=== PATIENT | male | born 1970 | race Caucasian/White ===

== ENCOUNTER → 2016-04-23 | Outpatient (CLI) | payer OTHER ==
[~2016-04-23] MED LIST: AMLODIPINE BESYL5 MG PO; ATARAX25 MG PO; CLEOCIN150 MG PO; FLEXERIL10 MG PO; NAPROSYN500 MG PO; PREDNICOT20 MG PO; PRILOSEC20 M1 PO; TESSALON PERLE200 MG PO; TORADOL10 MG PO; ZITHROMAX Z PA250 MG PO
[2016-04-23 09:23] LABS: BASO # 0.2 10*3/uL (0.0-0.1); BASO % 1.8 % (0.0-1.0); EOS # 0.7 10*3/uL (0.0-0.4); HEMATOCRIT 39.5 % (42.0-52.0); HEMOGLOBIN 13.5 g/dl (14.0-18.0); LYMPH # 3.3 10*3/uL (1.3-4.4); LYMPH % 34.1 % (27.0-41.0); MEAN CORPUSCULAR HGB 30.8 pg (27.0-31.0); MEAN CORPUSCULAR HGB CONC 34.2 g/dl (33.0-37.0); MEAN PLATELET VOLUME 8.8 fl (9.6-12.3); MONO # 0.8 10*3/uL (0.1-1.0); MONO % 8.4 % (3.0-9.0); NEUT # 4.7 10*3/uL (2.3-7.9); NEUT % 48.4 % (47.0-73.0); PLATELET COUNT AUTOMATED 248 10*3/uL (130-400); RED BLOOD COUNT 4.39 10*6/uL (4.50-5.90); RED CELL DISTRI WIDTH 11.7 % (0-14.5); WHITE BLOOD COUNT 9.7 10*3/uL (4.8-10.8)
[2016-04-23 09:45] LABS: ALBUMIN 3.4 gm/dl (3.1-4.5); BILIRUBIN, TOTAL 0.2 mg/dl (0.2-1.0); POTASSIUM 3.9 mmol/L (3.5-5.1); TOTAL PROTEIN 7.2 gm/dL (6.4-8.2)
== END | disposition home or self-care (01) ==
LOC: LAB 09:00
PROVIDERS: Student in an Organized Health Care Education/Training Program
DX: N17.9 Acute kidney failure, unspecified (principal)

== ENCOUNTER 2017-07-13 13:48 | Inpatient (IN) | payer OTHER ==
[~2017-07-13] VITALS: Ht 175.2 cm; Wt 83.7 kg
[2017-07-13 15:08] VITALS: BP 144/90
[2017-07-13] MEDS ORDERED: PRILOSEC20 M1 PO (15:08)
[2017-07-13 15:14] LABS: BASO # 0.1 10*3/uL (0.0-0.1); BASO % 1.3 % (0.0-1.0); EOS # 0.1 10*3/uL (0.0-0.4); EOS % 0.9 % (1.0-4.0); HEMATOCRIT 46.8 % (42.0-52.0); HEMOGLOBIN 15.8 g/dl (14.0-18.0); LYMPH # 2.3 10*3/uL (1.3-4.4); LYMPH % 26.6 % (27.0-41.0); MEAN CELL VOLUME 89.5 fl (80.0-94.0); MEAN CORPUSCULAR HGB 30.2 pg (27.0-31.0); MEAN CORPUSCULAR HGB CONC 33.8 g/dl (33.0-37.0); MEAN PLATELET VOLUME 8.9 fl (9.6-12.3); MONO # 0.7 10*3/uL (0.1-1.0); MONO % 8.3 % (3.0-9.0); NEUT # 5.3 10*3/uL (2.3-7.9); NEUT % 62.7 % (47.0-73.0); PLATELET COUNT AUTOMATED 246 10*3/uL (130-400); RED BLOOD COUNT 5.23 10*6/uL (4.50-5.90); RED CELL DISTRI WIDTH 13.2 % (0-14.5); WHITE BLOOD COUNT 8.5 10*3/uL (4.8-10.8)
[2017-07-13 15:20] LABS: INTERNATIONAL NORM RATIO 0.9 (2.0-3.5)
[2017-07-13 15:27] LABS: ALBUMIN 3.7 gm/dl (3.1-4.5); ALKALINE PHOSPHATASE 38 U/L (45-117); BUN 15 mg/dl (7-24); CHLORIDE 106 mmol/L (98-107); CREATININE 1.08 mg/dL (0.70-1.30); LIPASE 88 U/L (73-393); POTASSIUM 3.8 mmol/L (3.5-5.1); SGOT/AST 14 IU/L (3-35); SGPT/ALT 15 U/L (12-78); SODIUM 139 mmol/L (136-145); TOTAL PROTEIN 6.9 gm/dL (6.4-8.2)
[2017-07-13 15:32] LABS: ETHYL ALCOHOL < 3.0 mg/dl (<3)
[2017-07-13 16:00] VITALS: BP 144/90
[2017-07-13 16:32] LABS: BILIRUBIN NEGATIVE (NEGATIVE); BLOOD TRACE-LYSED (NEGATIVE); CLARITY SL CLOUDY (CLEAR); COLOR YELLOW (YELLOW); GLUCOSE NEGATIVE (NEGATIVE); KETONE NEGATIVE (NEGATIVE); LEUKO ESTERASE NEGATIVE (NEGATIVE); NITRITE NEGATIVE (NEGATIVE); PH 5.5 (5.0-9.0); SPECIFIC GRAVITY 1.025 (1.005-1.030); UROBILINOGEN 0.2 E.U./dl (0.2-1.0)
[2017-07-13 16:40] LABS: URINE AMPHETAMINES < 1000 (1000ng/ml); URINE BARBITURATES < 200 (200ng/ml); URINE BENZODIAZEPINES > 200 (200ng/ml); URINE CANNABINOIDS (THC) < 50 (50ng/ml); URINE COCAINE > 300 (300ng/ml); URINE METHADONE < 300 (300ng/ml); URINE OPIATES > 300 (300ng/ml)
[2017-07-13 16:41] LABS: URINE PHENCYCLIDINE < 25 (25ng/ml)
[2017-07-13 16:44] LABS: BACTERIA 1+; RBC 0-2 rbc/hpf (0-2)
[2017-07-13 16:45] LABS: MUCOUS TRACE
[2017-07-13 20:00] VITALS: BP 133/77
[2017-07-14 00:20] VITALS: BP 118/59
[2017-07-14 08:00] VITALS: BP 106/53
[2017-07-14 12:00] VITALS: BP 126/66
[2017-07-14 16:00] VITALS: BP 148/81
== END 2017-07-14 18:52 | disposition left against medical advice (07) | DRG 894 ==
LOC: 4E 13:48
PROVIDERS: Internal Medicine
DX: F11.23 Opioid dependence with withdrawal (principal); D72.810 Lymphocytopenia; F13.10 Sedative, hypnotic or anxiolytic abuse, uncomplicated; F41.9 Anxiety disorder, unspecified; I10 Essential (primary) hypertension; F14.10 Cocaine abuse, uncomplicated; K21.9 Gastro-esophageal reflux disease without esophagitis; F17.200 Nicotine dependence, unspecified, uncomplicated; R73.9 Hyperglycemia, unspecified; R76.8 Other specified abnormal immunological findings in serum; Z53.21 Procedure and treatment not carried out due to patient leaving prior to being seen by health care provider; Z79.899 Other long term (current) drug therapy; Z71.6 Tobacco abuse counseling

== ENCOUNTER 2017-09-12 16:26 | Inpatient (IN) | payer OTHER ==
[~2017-09-12] VITALS: Ht 175.2 cm; Wt 78.2 kg
[2017-09-12 16:30] VITALS: BP 141/99
[2017-09-12 16:56] LABS: BASO # 0.1 10*3/uL (0.0-0.1); BASO % 0.4 % (0.0-1.0); HEMATOCRIT 50.7 % (42.0-52.0); HEMOGLOBIN 16.9 g/dl (14.0-18.0); LYMPH # 1.6 10*3/uL (1.3-4.4); LYMPH % 13.4 % (27.0-41.0); MEAN CELL VOLUME 90.9 fl (80.0-94.0); MEAN CORPUSCULAR HGB 30.3 pg (27.0-31.0); MEAN CORPUSCULAR HGB CONC 33.3 g/dl (33.0-37.0); MEAN PLATELET VOLUME 8.9 fl (9.6-12.3); MONO # 0.5 10*3/uL (0.1-1.0); MONO % 3.9 % (3.0-9.0); NEUT # 9.7 10*3/uL (2.3-7.9); PLATELET COUNT AUTOMATED 244 10*3/uL (130-400); RED BLOOD COUNT 5.58 10*6/uL (4.50-5.90); RED CELL DISTRI WIDTH 12.1 % (0-14.5); WHITE BLOOD COUNT 11.8 10*3/uL (4.8-10.8)
[2017-09-12 17:06] VITALS: BP 134/87
[2017-09-12 17:11] LABS: ALBUMIN 4.1 gm/dl (3.1-4.5); ALKALINE PHOSPHATASE 40 U/L (45-117); BUN 10 mg/dl (7-24); CHLORIDE 105 mmol/L (98-107); CREATININE 1.28 mg/dL (0.70-1.30); POTASSIUM 4.6 mmol/L (3.5-5.1); SGOT/AST 12 IU/L (3-35); SGPT/ALT 19 U/L (12-78); SODIUM 140 mmol/L (136-145); TOTAL PROTEIN 7.7 gm/dL (6.4-8.2)
[2017-09-12 17:12] LABS: ETHYL ALCOHOL < 3.0 mg/dl (<3)
[2017-09-12 18:44] LABS: BILIRUBIN NEGATIVE (NEGATIVE); BLOOD NEGATIVE (NEGATIVE); CLARITY CLEAR (CLEAR); COLOR YELLOW (YELLOW); GLUCOSE NEGATIVE (NEGATIVE); KETONE NEGATIVE (NEGATIVE); LEUKO ESTERASE NEGATIVE (NEGATIVE); NITRITE NEGATIVE (NEGATIVE); SPECIFIC GRAVITY 1.015 (1.005-1.030)
[2017-09-12 18:52] LABS: BACTERIA TRACE; EPITHELIAL CELLS 0-2; RBC 0-2 rbc/hpf (0-2); URINE AMPHETAMINES < 1000 (1000ng/ml); URINE BARBITURATES < 200 (200ng/ml); URINE BENZODIAZEPINES > 200 (200ng/ml); URINE CANNABINOIDS (THC) < 50 (50ng/ml); URINE COCAINE > 300 (300ng/ml); URINE METHADONE < 300 (300ng/ml); URINE OPIATES > 300 (300ng/ml); URINE PHENCYCLIDINE < 25 (25ng/ml); WBC 0-2 wbc/hpf (0-5)
[2017-09-12 20:00] VITALS: BP 129/78
[2017-09-13] VITALS: BP 134/84
[2017-09-13 04:00] VITALS: BP 153/79
[2017-09-13 08:00] VITALS: BP 144/89
[2017-09-13 12:00] VITALS: BP 139/77
[2017-09-13 16:00] VITALS: BP 145/86
[2017-09-13 20:00] VITALS: BP 127/97
[2017-09-14] VITALS: BP 127/85
== END 2017-09-14 05:02 | disposition left against medical advice (07) | DRG 894 ==
LOC: ED 16:26 → EDHOLD 16:45 → 4E 16:56
PROVIDERS: Family Medicine
DX: F11.23 Opioid dependence with withdrawal (principal); R65.10 Systemic inflammatory response syndrome (SIRS) of non-infectious origin without acute organ dysfunction; D72.829 Elevated white blood cell count, unspecified; F19.10 Other psychoactive substance abuse, uncomplicated; F41.9 Anxiety disorder, unspecified; R00.0 Tachycardia, unspecified; R06.82 Tachypnea, not elsewhere classified; F10.10 Alcohol abuse, uncomplicated; F14.10 Cocaine abuse, uncomplicated; K21.9 Gastro-esophageal reflux disease without esophagitis; Z53.21 Procedure and treatment not carried out due to patient leaving prior to being seen by health care provider; F13.10 Sedative, hypnotic or anxiolytic abuse, uncomplicated; R76.8 Other specified abnormal immunological findings in serum; I10 Essential (primary) hypertension; R73.9 Hyperglycemia, unspecified; Z71.6 Tobacco abuse counseling; Z72.0 Tobacco use; Z79.899 Other long term (current) drug therapy; Z83.3 Family history of diabetes mellitus

== ENCOUNTER 2018-09-29 22:54 | Emergency (ER) | payer OTHER ==
[~2018-09-29] VITALS: Ht 170.1 cm; Wt 81.6 kg
[2018-09-29 22:57] VITALS: BP 168/94
== END 2018-09-30 00:25 | disposition left against medical advice (07) ==
LOC: ED 22:54
DX: F41.9 Anxiety disorder, unspecified (principal); F17.200 Nicotine dependence, unspecified, uncomplicated; F14.90 Cocaine use, unspecified, uncomplicated; F11.90 Opioid use, unspecified, uncomplicated

== ENCOUNTER 2018-09-30 11:48 | Emergency (ER) | payer OTHER ==
[~2018-09-30] VITALS: Ht 175.2 cm; Wt 81.6 kg
[2018-09-30 11:49] VITALS: BP 182/101
[2018-09-30 13:27] LABS: URINE AMPHETAMINES < 1000 (1000ng/ml); URINE BARBITURATES < 200 (200ng/ml); URINE BENZODIAZEPINES < 200 (200ng/ml); URINE CANNABINOIDS (THC) < 50 (50ng/ml); URINE COCAINE < 300 (300ng/ml); URINE METHADONE < 300 (300ng/ml); URINE OPIATES < 300 (300ng/ml); URINE PHENCYCLIDINE < 25 (25ng/ml)
== END 2018-09-30 13:55 | disposition home or self-care (01) ==
LOC: ED 11:48
PROVIDERS: Emergency Medicine
DX: F41.9 Anxiety disorder, unspecified (principal); F14.90 Cocaine use, unspecified, uncomplicated; F11.90 Opioid use, unspecified, uncomplicated; F17.200 Nicotine dependence, unspecified, uncomplicated; I10 Essential (primary) hypertension; K21.9 Gastro-esophageal reflux disease without esophagitis; G25.81 Restless legs syndrome

== ENCOUNTER 2019-02-15 15:57 | Emergency (ER) | payer SELFPAY ==
[~2019-02-15] VITALS: Ht 175.2 cm; Wt 86.2 kg
[2019-02-15 15:59] VITALS: BP 155/98
[2019-02-15] MEDS ORDERED: AMLODIPINE BESYL5 MG PO (16:11)
[2019-02-15] MEDS ORDERED: BUPRENORPHINE HY8 MG SL (16:11)
[2019-02-15] MEDS ORDERED: OMEPRAZOLE MAGN20 MG PO (16:11)
[2019-02-15] MEDS ORDERED: NAPROSYN500 MG PO (17:47)
== END 2019-02-15 18:12 | disposition home or self-care (01) ==
LOC: ED 15:57
DX: G89.29 Other chronic pain (principal); M25.511 Pain in right shoulder; M25.512 Pain in left shoulder; I10 Essential (primary) hypertension; K21.9 Gastro-esophageal reflux disease without esophagitis; G43.909 Migraine, unspecified, not intractable, without status migrainosus; F17.200 Nicotine dependence, unspecified, uncomplicated; Z79.899 Other long term (current) drug therapy

== ENCOUNTER 2020-11-24 13:10 | Emergency (ER) | payer OTHER ==
[~2020-11-24] VITALS: Wt 90.7 kg
[~2020-11-24 13:10] MED LIST changes: +BUPRENORPHINE HY8 MG SL; +OMEPRAZOLE MAGN20 MG PO
[2020-11-24 13:21] VITALS: BP 151/87
[2020-11-24 13:39] LABS: BASO # 0.1 10*3/uL (0.0-0.1); BASO % 0.7 % (0.0-1.0); EOS # 0.1 10*3/uL (0.0-0.4); EOS % 1.1 % (1.0-4.0); HEMATOCRIT 48.6 % (42.0-52.0); LYMPH # 2.8 10*3/uL (1.3-4.4); LYMPH % 28.2 % (27.0-41.0); MEAN CELL VOLUME 91.4 fl (80.0-94.0); MONO # 1.1 10*3/uL (0.1-1.0); NEUT # 5.8 10*3/uL (2.3-7.9); NEUT % 58.6 % (47.0-73.0); PLATELET COUNT AUTOMATED 271 10*3/uL (130-400); RED BLOOD COUNT 5.32 10*6/uL (4.50-5.90); RED CELL DISTRI WIDTH 12.6 % (0-14.5); WHITE BLOOD COUNT 9.8 10*3/uL (4.8-10.8)
[2020-11-24 13:57] LABS: ALBUMIN 3.6 gm/dl (3.1-4.5); ALKALINE PHOSPHATASE 34 U/L (45-117); BUN 16 mg/dl (7-24); CHLORIDE 108 mmol/L (98-107); CREATININE 1.06 mg/dL (0.70-1.30); POTASSIUM 4.4 mmol/L (3.5-5.1); SGOT/AST 13 IU/L (3-35); SGPT/ALT 30 U/L (12-78); SODIUM 139 mmol/L (136-145); TOTAL PROTEIN 7.4 gm/dL (6.4-8.2)
[2020-11-24 14:12] LABS: BILIRUBIN Negative (Negative); BLOOD Negative (Negative); CLARITY Clear (Clear); COLOR Yellow (Yellow); GLUCOSE Negative (Negative); KETONE Negative (Negative); LEUKO ESTERASE Negative (Negative); NITRITE Negative (Negative); UROBILINOGEN 0.2 E.U./dl (0.0-1.0)
[2020-11-24 14:20] LABS: URINE AMPHETAMINES < 1000 (1000ng/ml); URINE BARBITURATES < 200 (200ng/ml); URINE BENZODIAZEPINES < 200 (200ng/ml); URINE CANNABINOIDS (THC) < 50 (50ng/ml); URINE COCAINE < 300 (300ng/ml); URINE METHADONE < 300 (300ng/ml); URINE OPIATES < 300 (300ng/ml)
[2020-11-24 14:23] LABS: URINE PHENCYCLIDINE < 25 (25ng/ml)
[2020-11-24 14:25] LABS: BACTERIA TRACE
[2020-11-24] MEDS ORDERED: FLOMAX0.4 MG PO (15:13)
== END 2020-11-24 15:20 | disposition home or self-care (01) ==
LOC: ED 13:10
PROVIDERS: Emergency Medicine
DX: G89.29 Other chronic pain (principal); M54.5 Low back pain; R10.2 Pelvic and perineal pain; R39.11 Hesitancy of micturition; K21.9 Gastro-esophageal reflux disease without esophagitis; I10 Essential (primary) hypertension; Z79.899 Other long term (current) drug therapy

== ENCOUNTER 2021-03-19 05:56 | Emergency (ER) | payer OTHER ==
[~2021-03-19] VITALS: Ht 175.2 cm; Wt 90.7 kg
[~2021-03-19 05:56] MED LIST changes: +FLOMAX0.4 MG PO
[2021-03-19 07:26] LABS: HEMATOCRIT 48.6 % (42.0-52.0); MEAN CELL VOLUME 91.7 fl (80.0-94.0); MEAN CORPUSCULAR HGB 30.9 pg (27.0-31.0); MEAN CORPUSCULAR HGB CONC 33.7 g/dl (33.0-37.0); MEAN PLATELET VOLUME 8.9 fl (9.6-12.3); PLATELET COUNT AUTOMATED 216 10*3/uL (130-400); WHITE BLOOD COUNT 12.5 10*3/uL (4.8-10.8)
[2021-03-19 07:41] LABS: ALBUMIN 2.6 gm/dl (3.1-4.5); ALKALINE PHOSPHATASE 36 U/L (45-117); CHLORIDE 107 mmol/L (98-107); CPK 61 U/L (39-308); CREATININE 0.99 mg/dL (0.70-1.30); POTASSIUM 3.9 mmol/L (3.5-5.1); SGOT/AST 26 IU/L (3-35); SODIUM 140 mmol/L (136-145)
[2021-03-19 07:50] LABS: ATYPICAL LYMPHS 1 % (0-0); BASOPHILS 1 % (0-1); PLATELET SUFFICIENCY NORMAL (NORMAL); POLYCHROMASIA SLIGHT; TOTAL CELLS COUNTED 100 #CELLS
[2021-03-19 07:51] LABS: BUN 21 mg/dl (7-24); SGPT/ALT 97 U/L (12-78)
== END 2021-03-19 09:39 | disposition home or self-care (01) ==
LOC: ED 05:56
PROVIDERS: Emergency Medicine
DX: U07.1 COVID-19 (principal); K21.9 Gastro-esophageal reflux disease without esophagitis; I10 Essential (primary) hypertension; F17.200 Nicotine dependence, unspecified, uncomplicated; Z79.899 Other long term (current) drug therapy

== ENCOUNTER 2021-05-30 11:03 | Inpatient (IN) | payer OTHER ==
[~2021-05-30] VITALS: Ht 175.3 cm; Wt 95.5 kg
[2021-05-30 11:40] VITALS: BP 140/76
[2021-05-30] MEDS ORDERED: ARIPIPRAZOLE5 MG PO (12:22)
[2021-05-30] MEDS ORDERED: MIRTAZAPINE15 M2 PO (12:22)
[2021-05-30] MEDS ORDERED: 'CLONIDINE0.1 MG PO (12:23)
[2021-05-30] MEDS ORDERED: SUBOXONE 8 MG-1 EACH SL (12:31)
[2021-05-30 12:57] LABS: BASO # 0.1 10*3/uL (0.0-0.1); BASO % 0.8 % (0.0-1.0); EOS # 0.1 10*3/uL (0.0-0.4); EOS % 1.1 % (1.0-4.0); HEMATOCRIT 47.3 % (42.0-52.0); LYMPH % 26.4 % (27.0-41.0); MEAN CELL VOLUME 91.8 fl (80.0-94.0); MEAN CORPUSCULAR HGB 31.1 pg (27.0-31.0); MEAN CORPUSCULAR HGB CONC 33.8 g/dl (33.0-37.0); MEAN PLATELET VOLUME 8.9 fl (9.6-12.3); MONO # 0.8 10*3/uL (0.1-1.0); MONO % 10.9 % (3.0-9.0); NEUT # 4.6 10*3/uL (2.3-7.9); NEUT % 60.7 % (47.0-73.0); PLATELET COUNT AUTOMATED 233 10*3/uL (130-400); RED BLOOD COUNT 5.15 10*6/uL (4.50-5.90); RED CELL DISTRI WIDTH 12.3 % (0-14.5); WHITE BLOOD COUNT 7.6 10*3/uL (4.8-10.8)
[2021-05-30 13:17] LABS: ALKALINE PHOSPHATASE 35 U/L (45-117); BUN 12 mg/dl (7-24); CHLORIDE 106 mmol/L (98-107); CREATININE 0.96 mg/dL (0.70-1.30); SGOT/AST 14 IU/L (3-35); SGPT/ALT 44 U/L (12-78); SODIUM 138 mmol/L (136-145)
[2021-05-30 13:24] LABS: BILIRUBIN Negative (Negative); BLOOD 1+ (Negative); CLARITY Clear (Clear); COLOR Yellow (Yellow); GLUCOSE Negative (Negative); KETONE Trace (Negative); LEUKO ESTERASE Negative (Negative); NITRITE Negative (Negative); PH 5.5 (4.5-8.0); SPECIFIC GRAVITY 1.025 (1.001-1.030); UROBILINOGEN 0.2 E.U./dl (0.0-1.0)
[2021-05-30 13:28] LABS: ETHYL ALCOHOL < 3.0 mg/dl (<3)
[2021-05-30 13:32] LABS: URINE AMPHETAMINES < 1000 (1000ng/ml); URINE BARBITURATES < 200 (200ng/ml); URINE BENZODIAZEPINES < 200 (200ng/ml); URINE CANNABINOIDS (THC) < 50 (50ng/ml); URINE COCAINE > 300 (300ng/ml); URINE METHADONE < 300 (300ng/ml); URINE OPIATES < 300 (300ng/ml)
[2021-05-30 13:34] LABS: URINE PHENCYCLIDINE < 25 (25ng/ml)
== END 2021-05-30 15:25 | disposition left against medical advice (07) | DRG 770 ==
LOC: 4E 11:03
PROVIDERS: Registered Nurse; ADMIT Internal Medicine; ATTEND Internal Medicine
DX: F11.23 Opioid dependence with withdrawal (principal); F41.9 Anxiety disorder, unspecified; F14.10 Cocaine abuse, uncomplicated; Z79.899 Other long term (current) drug therapy; K21.9 Gastro-esophageal reflux disease without esophagitis; I10 Essential (primary) hypertension; F17.210 Nicotine dependence, cigarettes, uncomplicated; Z53.29 Procedure and treatment not carried out because of patient's decision for other reasons

== ENCOUNTER → 2021-10-11 | Outpatient (CLI) | payer OTHER ==
[~2021-10-11] MED LIST changes: +'CLONIDINE0.1 MG PO; +ARIPIPRAZOLE5 MG PO; +MIRTAZAPINE15 M2 PO; +SUBOXONE 8 MG-1 EACH SL
== END | disposition home or self-care (01) ==
LOC: RAD 08:40
PROVIDERS: ATTEND Family Medicine
DX: M47.814 Spondylosis without myelopathy or radiculopathy, thoracic region (principal); M48.04 Spinal stenosis, thoracic region; M25.511 Pain in right shoulder

== ENCOUNTER 2022-02-05 14:51 | Emergency (ER) | payer OTHER ==
[~2022-02-05] VITALS: Ht 175.2 cm; Wt 97.5 kg
[2022-02-05 15:00] VITALS: BP 130/76
[2022-02-05 15:39] LABS: BASO # 0.1 10*3/uL (0.0-0.1); BASO % 0.6 % (0.0-1.0); EOS # 0.1 10*3/uL (0.0-0.4); EOS % 1.1 % (1.0-4.0); HEMATOCRIT 43.2 % (42.0-52.0); LYMPH # 3.4 10*3/uL (1.3-4.4); LYMPH % 38.8 % (27.0-41.0); MEAN CORPUSCULAR HGB 30.6 pg (27.0-31.0); MONO # 0.9 10*3/uL (0.1-1.0); NEUT # 4.4 10*3/uL (2.3-7.9); NEUT % 49.4 % (47.0-73.0); PLATELET COUNT AUTOMATED 191 10*3/uL (130-400); RED CELL DISTRI WIDTH 12.1 % (0-14.5); WHITE BLOOD COUNT 8.8 10*3/uL (4.8-10.8)
[2022-02-05 15:52] LABS: ACT PARTIAL THROMBO TIME 24.6 SECONDS (20.0-32.1); INTERNATIONAL NORM RATIO 0.9 (2.0-3.5)
[2022-02-05 15:56] LABS: ALKALINE PHOSPHATASE 50 U/L (45-117); BUN 9 mg/dl (7-24); CHLORIDE 103 mmol/L (98-107); CREATININE 0.98 mg/dL (0.70-1.30); LIPASE 89 U/L (73-393); POTASSIUM 3.6 mmol/L (3.5-5.1); SGOT/AST 17 IU/L (3-35); SGPT/ALT 44 U/L (12-78); SODIUM 139 mmol/L (136-145); TOTAL PROTEIN 6.7 gm/dL (6.4-8.2)
[2022-02-05 16:01] LABS: ETHYL ALCOHOL < 3.0 mg/dl (<3)
[2022-02-05] MEDS ORDERED: ONDANSETRON HYDR4 M1 PO (16:45)
== END 2022-02-05 16:55 | disposition home or self-care (01) ==
LOC: ED 14:51
PROVIDERS: Emergency Medicine
DX: R11.2 Nausea with vomiting, unspecified (principal); E66.9 Obesity, unspecified; F41.9 Anxiety disorder, unspecified; I10 Essential (primary) hypertension; K21.9 Gastro-esophageal reflux disease without esophagitis; F14.90 Cocaine use, unspecified, uncomplicated; F17.210 Nicotine dependence, cigarettes, uncomplicated; Z79.899 Other long term (current) drug therapy; Z68.30 Body mass index [BMI] 30.0-30.9, adult

== ENCOUNTER 2022-06-18 12:49 | Emergency (ER) | payer OTHER ==
[~2022-06-18] VITALS: Ht 177.8 cm; Wt 99.8 kg
[~2022-06-18 12:49] MED LIST changes: +ONDANSETRON HYDR4 M1 PO
[2022-06-18 13:01] VITALS: BP 112/68
[2022-06-18 14:29] LABS: BASO # 0.1 10*3/uL (0.0-0.1); BASO % 0.9 % (0.0-1.0); EOS # 0.2 10*3/uL (0.0-0.4); EOS % 2.4 % (1.0-4.0); HEMATOCRIT 45.2 % (42.0-52.0); LYMPH # 2.7 10*3/uL (1.3-4.4); LYMPH % 35.2 % (27.0-41.0); MEAN CELL VOLUME 87.9 fl (80.0-94.0); MEAN PLATELET VOLUME 8.9 fl (9.6-12.3); MONO # 0.9 10*3/uL (0.1-1.0); MONO % 11.2 % (3.0-9.0); NEUT # 3.9 10*3/uL (2.3-7.9); NEUT % 50.2 % (47.0-73.0); PLATELET COUNT AUTOMATED 249 10*3/uL (130-400); RED BLOOD COUNT 5.14 10*6/uL (4.50-5.90); RED CELL DISTRI WIDTH 13.2 % (0-14.5); WHITE BLOOD COUNT 7.8 10*3/uL (4.8-10.8)
[2022-06-18 14:43] LABS: BUN 15 mg/dl (9-23); CHLORIDE 108 mmol/L (98-107); ETHYL ALCOHOL < 3.0 mg/dl (<3); POTASSIUM 3.8 mmol/L (3.4-5.1)
[2022-06-18 15:41] LABS: BILIRUBIN 1+ (Negative); BLOOD Negative (Negative); CLARITY Turbid (Clear); COLOR Dark Yellow (Yellow); GLUCOSE Negative (Negative); KETONE Trace (Negative); LEUKO ESTERASE Trace (Negative); NITRITE Negative (Negative); SPECIFIC GRAVITY 1.025 (1.001-1.030)
[2022-06-18 15:48] LABS: URINE AMPHETAMINES Negative (1000ng/ml); URINE BARBITURATES Negative (200ng/ml); URINE BENZODIAZEPINES Positive (200ng/ml); URINE CANNABINOIDS (THC) Negative (50ng/ml); URINE COCAINE Positive (300ng/ml); URINE METHADONE Negative (300ng/ml); URINE OPIATES Positive (300ng/ml); URINE PHENCYCLIDINE Negative (25ng/ml)
[2022-06-18 17:27] LABS: EPITHELIAL CELLS 21-30; RBC 0-2 rbc/hpf (0-2)
[2022-06-18 17:28] LABS: BACTERIA TRACE
== END 2022-06-18 16:03 | disposition home or self-care (01) ==
LOC: ED 12:49
PROVIDERS: Physician Assistant
DX: F32.A Depression, unspecified (principal)

== ENCOUNTER → 2022-12-15 | Outpatient (CLI) | payer OTHER ==
[2022-12-15 13:56] LABS: BASO # 0.1 10*3/uL (0.0-0.1); BASO % 1.1 % (0.0-1.0); EOS # 0.1 10*3/uL (0.0-0.4); EOS % 1.4 % (1.0-4.0); HEMATOCRIT 45.4 % (42.0-52.0); LYMPH # 2.1 10*3/uL (1.3-4.4); LYMPH % 31.7 % (27.0-41.0); MEAN CELL VOLUME 87.6 fl (80.0-94.0); MEAN CORPUSCULAR HGB 29.9 pg (27.0-31.0); MEAN CORPUSCULAR HGB CONC 34.1 g/dl (33.0-37.0); MEAN PLATELET VOLUME 8.8 fl (9.6-12.3); MONO # 0.8 10*3/uL (0.1-1.0); MONO % 11.3 % (3.0-9.0); NEUT # 3.6 10*3/uL (2.3-7.9); NEUT % 54.2 % (47.0-73.0); PLATELET COUNT AUTOMATED 231 10*3/uL (130-400); RED BLOOD COUNT 5.18 10*6/uL (4.50-5.90); RED CELL DISTRI WIDTH 12.5 % (0-14.5); WHITE BLOOD COUNT 6.7 10*3/uL (4.8-10.8)
[2022-12-15 14:28] LABS: ALKALINE PHOSPHATASE 47 U/L (46-116); BUN 10 mg/dl (9-23); CHLORIDE 105 mmol/L (98-107); POTASSIUM 4.5 mmol/L (3.4-5.1); SGPT/ALT 19 U/L (10-49); TOTAL PROTEIN 7.2 gm/dL (6.0-8.0)
[2022-12-16 07:06] LABS: HBSAG Negative (Negative); HEP B CORE AB, IGM Negative (Negative)
[2022-12-18 16:08] LABS: HEPATITIS C ANTIBODY Reactive (Non Reactive)
== END | disposition home or self-care (01) ==
LOC: LAB 13:33
PROVIDERS: ATTEND Nurse Practitioner Family
DX: Z11.59 Encounter for screening for other viral diseases (principal); F11.20 Opioid dependence, uncomplicated; R53.83 Other fatigue

== ENCOUNTER 2024-10-10 22:28 | Emergency (ER) | payer OTHER ==
[~2024-10-10] VITALS: Ht 175.2 cm; Wt 90.7 kg
[2024-10-10 23:02] VITALS: BP 165/86
[2024-10-10] MEDS ORDERED: LORazepam 1 MG TAB PO ONE (23:05)
[2024-10-11] MEDS ORDERED: LORazepam 1 MG TAB PO ONE (00:30)
== END 2024-10-11 00:44 | disposition home or self-care (01) ==
LOC: ED 22:28
DX: F41.0 Panic disorder [episodic paroxysmal anxiety] (principal); Z79.899 Other long term (current) drug therapy; Z87.891 Personal history of nicotine dependence

== ENCOUNTER 2024-10-13 21:34 | Emergency (ER) | payer OTHER ==
[~2024-10-13] VITALS: Ht 175.2 cm; Wt 90.7 kg
[2024-10-13] MEDS ORDERED: LORAZEPAM1 MG PO (21:45)
[2024-10-13] MEDS ORDERED: AMLODIPINE BESY10 MG PO (21:46)
[2024-10-13] MEDS ORDERED: BUPROPION XL300 MG PO (21:47)
[2024-10-13] MEDS ORDERED: MIXED AMPHETAMI20 MG PO (21:47)
[2024-10-13] MEDS ORDERED: LORazepam 1 MG TAB PO ONE ×2 (22:20→23:00)
[2024-10-13 23:02] VITALS: BP 122/80
== END 2024-10-13 23:08 | disposition home or self-care (01) ==
LOC: ED 21:34
DX: F41.0 Panic disorder [episodic paroxysmal anxiety] (principal); F32.A Depression, unspecified; I10 Essential (primary) hypertension; K21.9 Gastro-esophageal reflux disease without esophagitis; F14.10 Cocaine abuse, uncomplicated; F11.10 Opioid abuse, uncomplicated; Z79.899 Other long term (current) drug therapy; Z87.891 Personal history of nicotine dependence

== ENCOUNTER 2024-10-29 12:22 | Emergency (ER) | payer OTHER ==
[~2024-10-29] VITALS: Wt 90.0 kg
[~2024-10-29 12:22] MED LIST changes: +AMLODIPINE BESY10 MG PO; +BUPROPION XL300 MG PO; +LORAZEPAM1 MG PO; +MIXED AMPHETAMI20 MG PO
[2024-10-29] MEDS ORDERED: Naloxone Hydrochloride 2 MG/2 ML SYR IV ONE (12:25)
[2024-10-29 13:04] VITALS: BP 118/76
[2024-10-29 13:44] LABS: BASO # 0.0 10*3/uL (0.0-0.1); BASO % 0.3 % (0.0-1.0); EOS # 0.0 10*3/uL (0.0-0.4); EOS % 0.0 % (1.0-4.0); MEAN CELL VOLUME 90.8 fl (80.0-94.0); MEAN CORPUSCULAR HGB 28.5 pg (27.0-31.0); MEAN PLATELET VOLUME 8.2 fl (9.6-12.3); MONO # 1.2 10*3/uL (0.1-1.0); MONO % 9.0 % (3.0-9.0); NEUT # 11.5 10*3/uL (2.3-7.9); NEUT % 84.1 % (47.0-73.0); NUCLEATED RED BLOOD CELL 0.0 % (0.0-0.0); NUCLEATED RED BLOOD CELL 0.0 10*3/uL (0.0-0.0); PLATELET COUNT AUTOMATED 251 10*3/uL (130-400); RED CELL DISTRI WIDTH 13.0 % (0-14.5)
[2024-10-29 14:02] LABS: BUN 14 mg/dl (9-23); SGPT/ALT 28 U/L (5-49)
[2024-10-29 14:05] LABS: ETHYL ALCOHOL < 3.0 mg/dl (<3)
[2024-10-29] MEDS ORDERED: INSULIN REGULAR, HUMAN 1 UNIT/0.01 ML IV ONE (15:20)
[2024-10-29] MEDS ORDERED: SODIUM CHLORIDE 0.9% 1,000 ML IV ONE (15:20)
[2024-10-29] MEDS ORDERED: DEXTROSE 50% 25 GM/50 ML SYR IV ONE (15:20)
[2024-10-29 18:33] LABS: BUN 17.0 mg/dl (9-23)
== END 2024-10-29 19:06 | disposition left against medical advice (07) ==
LOC: ED 12:22
PROVIDERS: Internal Medicine
DX: R40.4 Transient alteration of awareness (principal); Z79.899 Other long term (current) drug therapy; Z87.891 Personal history of nicotine dependence; Z53.29 Procedure and treatment not carried out because of patient's decision for other reasons